=== PATIENT | female | born 1955 | race African-American/Black ===

== ENCOUNTER 2021-03-27 13:10 | Emergency (ER) | payer MEDICARE, MEDICAID ==
[~2021-03-27] VITALS: Ht 167.6 cm; Wt 105.0 kg
[~2021-03-27 13:10] MED LIST: ADALAT CC30 MG PO; AMBIEN5 MG PO; APRESOLINE25 MG/TAB PO; ATENOLOL50 MG PO; CLONIDINE0.2 MG PO; CYCLOBENZAPR10 MG OR; DIOVAN HC2 PO; DIOVAN160 MG PO; FLEXERIL OR; K-DUR/KLOR-CON20 MEQ PO; K-TAB20 MEQ PO; LISINOPRIL10 MG OR; MAXZIDE-2537.5 MG/TA PO; METFORMIN500 M1 OR; METFORMIN500 MG PO; SILVADENE1 % EX; ULTRAM50 M1 PO; ULTRAM50 MG OR; ZESTRIL/PRI20 MG/TAB PO
[2021-03-27 14:53] VITALS: BP 173/89
== END 2021-03-27 14:55 | disposition home or self-care (01) ==
LOC: ED 13:10
DX: I10 Essential (primary) hypertension (principal); T46.5X6A Underdosing of other antihypertensive drugs, initial encounter; M10.9 Gout, unspecified; Z91.128 Patient's intentional underdosing of medication regimen for other reason

== ENCOUNTER 2021-06-06 21:11 | Inpatient (IN) | payer MEDICARE, MEDICAID ==
[~2021-06-06] VITALS: Ht 165.1 cm; Wt 87.0 kg
[2021-06-06 22:04] LABS: GFR 55 ML/MIN (>=60 (CALC)); GFR FOR AFR.AMER. > 60 ML/MIN (>=60 (CALC))
[2021-06-06 22:05] LABS: URINE BILIRUBIN - DIPSTICK NEGATIVE (NEGATIVE); URINE BLOOD DIPSTICK NEGATIVE (NEGATIVE); URINE COLOR YELLOW; URINE GLUCOSE - DIPSTICK NEGATIVE (NEGATIVE); URINE KETONE NEGATIVE (NEGATIVE); URINE LEUK ESTERASE NEGATIVE (NEGATIVE); URINE PROTEIN - DIPSTICK NEGATIVE (NEG-TRACE); URINE SPECIFIC GRAVITY <=1.005; URINE UROBILINOGEN - DIPSTICK 0.2 E.U./dL (0.2)
[2021-06-06 22:06] LABS: HEMATOCRIT 37.9 % (37.0-47.0); HEMOGLOBIN 12.9 g/dl (12.0-16.0); MEAN CORPUSCULAR HGB 30.3 pG CALC (26.0-32.0); NEUT# 2.82 thou/uL (2.00-7.15); RED BLOOD COUNT 4.26 mill/uL (4.20-5.60); RED CELL DISTRI WIDTH 12.8 % (11.5-15.5); URINE NITRITE - DIPSTICK NEGATIVE (Negative)
[2021-06-06 22:18] LABS: ALBUMIN 4.4 g/dL (3.2-5.0); ALKALINE PHOSPHATASE 95 u/l (38-126); ANION GAP 13 (6-22 (CALC)); BILIRUBIN, TOTAL 0.7 mg/dL (0.0-1.4); BUN 14 mg/dL (8-23); BUN/CREATININE RATIO 15 (12-20 (CALC)); CARBON DIOXIDE 28 mmol/l (22-30); CHLORIDE 103 mmol/l (95-108); CREATININE 0.9 mg/dL (0.5-1.0); GFR > 60 ML/MIN (>=60 (CALC)); GFR FOR AFR.AMER. > 60 ML/MIN (>=60 (CALC)); SGOT/AST 46 u/l (9-36); SODIUM 141 mmol/l (137-146); TOTAL PROTEIN 8.2 g/dL (6.3-8.2)
[2021-06-06 22:29] LABS: MYOGLOBIN 109 ng/mL (0 - 62)
[2021-06-06] MEDS ORDERED: NIFEDIPINE ER30 M1 PO (22:54)
[2021-06-06] MEDS ORDERED: LOSARTAN POTAS100 MG PO (22:54)
[2021-06-07 01:56] LABS: CHOLESTEROL HDL RATIO 2.7 (<4.4 (CALC)); MAGNESIUM 1.8 mg/dL (1.6-2.3)
[2021-06-07 03:28] VITALS: BP 177/78
[2021-06-07 07:52] VITALS: BP 171/84
[2021-06-07 12:18] VITALS: BP 181/83
[2021-06-07 16:05] VITALS: BP 191/84
[2021-06-07 17:48] VITALS: BP 155/90
[2021-06-07 19:00] VITALS: BP 167/89
[2021-06-08] VITALS (7 sets, daily range): BP systolic 138–189; BP diastolic 65–85
[2021-06-08 05:48] LABS: ANION GAP 9 (6-22 (CALC)); BUN 16 mg/dL (8-23); BUN/CREATININE RATIO 20 (12-20 (CALC)); CALCULATED LDLCHOLESTEROL 76 mg/dL (62-129 (CALC)); CARBON DIOXIDE 29 mmol/l (22-30); CHLORIDE 107 mmol/l (95-108); CREATININE 0.8 mg/dL (0.5-1.0); GFR > 60 ML/MIN (>=60 (CALC)); GFR FOR AFR.AMER. > 60 ML/MIN (>=60 (CALC)); HDL CHOLESTEROL 52 mg/dL (>=40); MAGNESIUM 1.7 mg/dL (1.6-2.3); POTASSIUM 3.3 mmol/l (3.5-5.1); SODIUM 141 mmol/l (137-146); TOTAL CHOLESTEROL 154 mg/dl (0-199); TOTAL TRIGLYCERIDES 132 mg/dl (30-149); VLDL CHOLESTROL 26 mg/dl (1-41 (CALC))
[2021-06-08 05:58] LABS: HEMATOCRIT 38.3 % (37.0-47.0); HEMOGLOBIN 12.9 g/dl (12.0-16.0); MEAN CELL VOLUME 90.5 fL CALC (80.0-100.0); MEAN CORPUSCULAR HGB 30.5 pG CALC (26.0-32.0); MEAN CORPUSCULAR HGB CONC 33.7 g/dL CAL (32.0-36.0); RED BLOOD COUNT 4.23 mill/uL (4.20-5.60); RED CELL DISTRI WIDTH 12.9 % (11.5-15.5)
[2021-06-08] MEDS ORDERED: LABETALOL HYDR100 MG PO (13:55)
[2021-06-08] MEDS ORDERED: CLONIDINE HCL0.1 MG PO (13:56)
[2021-06-08] MEDS ORDERED: ASPIRIN 81 LOW81 MG PO (14:04)
[2021-06-08] MEDS ORDERED: ATORVASTATIN CA80 MG PO (14:05)
== END 2021-06-08 15:28 | disposition home or self-care (01) | DRG 66 ==
LOC: ED 21:11 → ED-I 06-07 00:05 → ED 06-07 00:16 → MS2 06-07 00:17
PROVIDERS: Emergency Medicine; Nurse Practitioner; ADMIT Hospitalist; ATTEND Hospitalist
DX: I63.89 Other cerebral infarction (principal); R47.81 Slurred speech; H53.8 Other visual disturbances; R29.700 NIHSS score 0; I16.0 Hypertensive urgency; I10 Essential (primary) hypertension; E11.9 Type 2 diabetes mellitus without complications; E87.6 Hypokalemia; E78.5 Hyperlipidemia, unspecified; M10.9 Gout, unspecified; E66.9 Obesity, unspecified; Z68.31 Body mass index [BMI] 31.0-31.9, adult; Z20.822 Contact with and (suspected) exposure to COVID-19
CPT/HCPCS: Q9967

== ENCOUNTER 2021-08-19 13:49 | Emergency (ER) | payer MEDICARE, MEDICAID ==
[~2021-08-19 13:49] MED LIST changes: +ASPIRIN 81 LOW81 MG PO; +ATORVASTATIN CA80 MG PO; +CLONIDINE HCL0.1 MG PO; +LABETALOL HYDR100 MG PO; +LOSARTAN POTAS100 MG PO; +NIFEDIPINE ER30 M1 PO
== END 2021-08-19 14:20 | disposition left against medical advice (07) ==
LOC: ED 13:49 → LWOBS 14:20
DX: Z53.21 Procedure and treatment not carried out due to patient leaving prior to being seen by health care provider (principal)

== ENCOUNTER 2022-01-26 15:50 | Observation (INO) | payer MEDICARE, MEDICAID ==
[2022-01-26] VITALS (18 sets, daily range): BP systolic 123–190; BP diastolic 57–162
[~2022-01-26] VITALS: Ht 165.1 cm; Wt 94.0 kg
[2022-01-26 16:19] LABS: HEMATOCRIT 35.1 % (37.0-47.0); HEMOGLOBIN 11.5 g/dl (12.0-16.0); IMMATURE GRANULOCYTES 0.2 % (0.0-5.0); MEAN CELL VOLUME 92.4 fL CALC (80.0-100.0); MEAN CORPUSCULAR HGB 30.3 pG CALC (26.0-32.0); MEAN CORPUSCULAR HGB CONC 32.8 g/dL CAL (32.0-36.0); NEUT# 3.14 thou/uL (2.00-7.15); RED BLOOD COUNT 3.8 mill/uL (4.20-5.60); RED CELL DISTRI WIDTH 12.6 % (11.5-15.5)
[2022-01-26 16:34] LABS: PROTHROMBIN TIME 10.7 SECONDS (9.0-12.5)
[2022-01-26 16:38] LABS: ALBUMIN 4.2 g/dL (3.2-5.0); ALKALINE PHOSPHATASE 95 u/l (38-126); BILIRUBIN, TOTAL 0.7 mg/dL (0.0-1.4); BUN 14 mg/dL (8-23); BUN/CREATININE RATIO 14 (12-20 (CALC)); CARBON DIOXIDE 27 mmol/l (22-30); CHLORIDE 97 mmol/l (95-108); CREATININE 1.1 mg/dL (0.5-1.0); GFR FOR AFR.AMER. 60 ML/MIN (>=60 (CALC)); GFR OTHER RACES 49 ML/MIN (>=60 (CALC)); POTASSIUM 3.3 mmol/l (3.5-5.1); SGOT/AST 32 u/l (9-36); TOTAL PROTEIN 7.3 g/dL (6.3-8.2)
[2022-01-26 16:40] LABS: ANION GAP 9 (6-22 (CALC)); SODIUM 130 mmol/l (137-146)
[2022-01-26 17:02] LABS: URINE BILIRUBIN - DIPSTICK NEGATIVE (NEGATIVE); URINE BLOOD DIPSTICK TRACE-INTACT (NEGATIVE); URINE COLOR YELLOW; URINE GLUCOSE - DIPSTICK NEGATIVE (NEGATIVE); URINE KETONE NEGATIVE (NEGATIVE); URINE LEUK ESTERASE NEGATIVE (NEGATIVE); URINE NITRITE - DIPSTICK NEGATIVE (Negative); URINE PH 6.5 (4.5-8.0); URINE PROTEIN - DIPSTICK NEGATIVE (NEG-TRACE); URINE UROBILINOGEN - DIPSTICK 0.2 E.U./dL (0.2)
[2022-01-27] VITALS (30 sets, daily range): BP systolic 119–185; BP diastolic 53–101
[2022-01-27 06:12] LABS: ALBUMIN 3.9 g/dL (3.2-5.0); ALKALINE PHOSPHATASE 97 u/l (38-126); ANION GAP 10 (6-22 (CALC)); BILIRUBIN, TOTAL 0.8 mg/dL (0.0-1.4); BUN 12 mg/dL (8-23); BUN/CREATININE RATIO 16 (12-20 (CALC)); CALCULATED LDLCHOLESTEROL 44 mg/dL (62-129 (CALC)); CARBON DIOXIDE 29 mmol/l (22-30); CHLORIDE 107 mmol/l (95-108); CREATININE 0.8 mg/dL (0.5-1.0); GFR FOR AFR.AMER. > 60 ML/MIN (>=60 (CALC)); GFR OTHER RACES > 60 ML/MIN (>=60 (CALC)); HDL CHOLESTEROL 61 mg/dL (>=40); MAGNESIUM 1.7 mg/dL (1.6-2.3); SGOT/AST 33 u/l (9-36); TOTAL CHOLESTEROL 120 mg/dl (0-199); TOTAL PROTEIN 6.8 g/dL (6.3-8.2); TOTAL TRIGLYCERIDES 78 mg/dl (30-149); VLDL CHOLESTROL 16 mg/dl (1-41 (CALC))
[2022-01-27 06:43] LABS: SODIUM 143 mmol/l (137-146)
[2022-01-27] MEDS ORDERED: LABETALOL HYDR200 MG PO (09:55)
[2022-01-27] MEDS ORDERED: METFORMIN500 M2 PO (10:00)
[2022-01-27] MEDS ORDERED: ALLOPURINOL100 MG PO (10:00)
[2022-01-27] MEDS ORDERED: K-TAB20 MEQ PO (10:01)
[2022-01-27] MEDS ORDERED: MAXZIDE PO (10:02)
[2022-01-27] MEDS ORDERED: ASPIRIN REGULA325 M1 PO (17:09)
== END 2022-01-27 17:45 | disposition home or self-care (01) ==
LOC: ED 15:50 → ED-I 16:37 → ED 16:37 → ED-I 16:37 → ED 17:25 → ED-I 17:25 → ICU 17:26 → ED 17:26 → ICU 17:26 → ED 17:26 → ICU 01-27 17:45
PROVIDERS: Internal Medicine; ADMIT Internal Medicine; ATTEND Internal Medicine
DX: H53.8 Other visual disturbances (principal); R53.1 Weakness; I10 Essential (primary) hypertension; E11.9 Type 2 diabetes mellitus without complications; E78.5 Hyperlipidemia, unspecified; M10.9 Gout, unspecified; Z86.73 Personal history of transient ischemic attack (TIA), and cerebral infarction without residual deficits; Z79.84 Long term (current) use of oral hypoglycemic drugs; Z20.822 Contact with and (suspected) exposure to COVID-19
CPT/HCPCS: J1650; J3101; Q9967

== ENCOUNTER 2022-10-09 17:03 | Emergency (ER) | payer MEDICARE, MEDICAID ==
[~2022-10-09] VITALS: Ht 165.1 cm; Wt 102.5 kg
[~2022-10-09 17:03] MED LIST changes: +ALLOPURINOL100 MG PO; +ASPIRIN REGULA325 M1 PO; +LABETALOL HYDR200 MG PO; +MAXZIDE PO; +METFORMIN500 M2 PO
[2022-10-09 17:57] VITALS: BP 172/81
[2022-10-09 18:00] VITALS: BP 153/79
[2022-10-09 18:15] VITALS: BP 141/71
[2022-10-09 22:58] VITALS: BP 150/80
[2022-10-09] MEDS ORDERED: PAXLOVID 10 X 11 TAB PO (23:07)
[2022-10-09 23:16] VITALS: BP 154/89
[2022-10-09 23:17] VITALS: BP 154/89
== END 2022-10-09 23:21 | disposition home or self-care (01) ==
LOC: ED 17:03
DX: U07.1 COVID-19 (principal); R50.9 Fever, unspecified; R05.9 Cough, unspecified; I10 Essential (primary) hypertension; E11.9 Type 2 diabetes mellitus without complications; Z86.73 Personal history of transient ischemic attack (TIA), and cerebral infarction without residual deficits; Z79.84 Long term (current) use of oral hypoglycemic drugs

== ENCOUNTER 2023-02-01 23:43 | Emergency (ER) | payer MEDICARE, MEDICAID ==
[~2023-02-01] VITALS: Ht 165.1 cm; Wt 100.0 kg
[~2023-02-01 23:43] MED LIST changes: +PAXLOVID 10 X 11 TAB PO
[2023-02-01 23:50] VITALS: BP 197/83
[2023-02-01] MEDS ORDERED: ASPIRINCHW 81MG PO (23:56)
[2023-02-02] VITALS (8 sets, daily range): BP systolic 138–197; BP diastolic 53–92
[2023-02-02] MEDS ORDERED: FUROSEMIDE20 MG PO (00:03)
[2023-02-02 01:03] LABS: EOS% 2.4 % (0-8); HEMATOCRIT 35.6 % (37.0-47.0); HEMOGLOBIN 11.6 g/dl (12.0-16.0); IMMATURE GRANULOCYTES 0.5 % (0.0-5.0); LYMPH% 46.2 % (15-41); MEAN CELL VOLUME 89.9 fL CALC (80.0-100.0); MEAN CORPUSCULAR HGB 29.3 pG CALC (26.0-32.0); MEAN CORPUSCULAR HGB CONC 32.6 g/dL CAL (32.0-36.0); MONO% 8.5 % (2-13); NEUT# 2.57 thou/uL (2.00-7.15); NEUT% 41.4 % (42-76); RED BLOOD COUNT 3.96 mill/uL (4.20-5.60); RED CELL DISTRI WIDTH 12.7 % (11.5-15.5)
[2023-02-02 01:12] LABS: ALBUMIN 4.3 g/dL (3.2-5.0); BILIRUBIN, TOTAL 0.8 mg/dL (0.02-1.3); CREATININE 1.1 mg/dL (0.5-1.0); TOTAL PROTEIN 7.8 g/dL (6.3-8.2)
== END 2023-02-02 03:15 | disposition home or self-care (01) ==
LOC: ED 23:43
PROVIDERS: Emergency Medicine
DX: I10 Essential (primary) hypertension (principal); E87.6 Hypokalemia; E11.9 Type 2 diabetes mellitus without complications; Z86.73 Personal history of transient ischemic attack (TIA), and cerebral infarction without residual deficits; Z79.84 Long term (current) use of oral hypoglycemic drugs; R94.31 Abnormal electrocardiogram [ECG] [EKG]

== ENCOUNTER 2024-08-03 14:19 | Emergency (ER) | payer OTHER, MEDICARE, MEDICAID ==
[2024-08-03] VITALS (7 sets, daily range): BP systolic 135–176; BP diastolic 67–90
[~2024-08-03] VITALS: Ht 165.1 cm; Wt 101.0 kg
[~2024-08-03 14:19] MED LIST changes: +ASPIRINCHW 81MG PO; +FUROSEMIDE20 MG PO; +MEDDOSEPAK PO; +METHOCARBAMOL500 MG PO
[2024-08-03] MEDS ORDERED: Diph, Acellular Pertussis, Tet 0.5 ML/VIAL (Tdap) SDV IM ONE ×2 (14:40→15:00)
[2024-08-03] MEDS ORDERED: KETOROLAC TROMETHAMINE 15 MG/ML SDV IV ONE (14:40)
[2024-08-03] MEDS ORDERED: ORPHENADRINE CITRATE 30 MG/ML AMP IV ONE (14:45)
[2024-08-03 15:09] LABS: HEMATOCRIT 37.5 % (37.0-47.0); HEMOGLOBIN 12.2 g/dl (12.0-16.0); LYMPH% 39.9 % (15-41); MEAN CELL VOLUME 91.2 fL CALC (80.0-100.0); MEAN CORPUSCULAR HGB 29.7 pG CALC (26.0-32.0); MEAN CORPUSCULAR HGB CONC 32.5 g/dL CAL (32.0-36.0); MONO% 8.2 % (2-13); NEUT# 2.3 thou/uL (2.00-7.15); NEUT% 45.9 % (42-76); RED BLOOD COUNT 4.11 mill/uL (4.20-5.60); RED CELL DISTRI WIDTH 12.6 % (11.5-15.5)
[2024-08-03 15:22] LABS: ALBUMIN 4.4 g/dL (3.2-5.0); BILIRUBIN, TOTAL 0.8 mg/dL (0.02-1.3); TOTAL PROTEIN 7.5 g/dL (6.3-8.2)
[2024-08-03 15:25] LABS: POTASSIUM 4.2 mmol/l (3.5-5.1)
[2024-08-03] MEDS ORDERED: NAPROXEN500 MG PO (17:06)
[2024-08-03 17:25] LABS: URINE BILIRUBIN - DIPSTICK Negative (NEGATIVE); URINE BLOOD DIPSTICK Trace-intact (NEGATIVE); URINE CLARITY Clear; URINE GLUCOSE - DIPSTICK Negative (NEGATIVE); URINE KETONE Negative (NEGATIVE); URINE LEUK ESTERASE Negative (Negative); URINE NITRITE - DIPSTICK Negative (Negative); URINE PH 7.5 (4.5-8.0); URINE PROTEIN - DIPSTICK Negative (NEG-TRACE); URINE SPECIFIC GRAVITY 1.015; URINE UROBILINOGEN - DIPSTICK 0.2 E.U./dL (0.2)
[2024-08-03 17:27] LABS: URINE COLOR Yellow
== END 2024-08-03 17:40 | disposition home or self-care (01) | DRG 605 ==
LOC: ED 14:19
PROVIDERS: Nurse Practitioner
DX: S80.212A Abrasion, left knee, initial encounter (principal); T14.8XXA Other injury of unspecified body region, initial encounter; E11.9 Type 2 diabetes mellitus without complications; I10 Essential (primary) hypertension; V43.51XA Car driver injured in collision with sport utility vehicle in traffic accident, initial encounter; Z86.73 Personal history of transient ischemic attack (TIA), and cerebral infarction without residual deficits
CPT/HCPCS: 90715; J1885; J2360; Q9967